=== PATIENT | female | born 1990 | race African-American/Black ===

== ENCOUNTER 2018-08-15 12:32 | Emergency (ER) | payer OTHER ==
[~2018-08-15] VITALS: Ht 160 cm; Wt 79.4 kg
[~2018-08-15 12:32] MED LIST: IBUPROFEN 600600 M1 PO; NOHOMEMEDICATIONS
[2018-08-15] MEDS ORDERED: VENTOLIN HFA 1818 GM INH (14:03)
[2018-08-15] MEDS ORDERED: PREDNISONE 20 M20 MG PO (14:03)
[2018-08-15] MEDS ORDERED: TESSALON PERLE100 MG PO (14:03)
[2018-08-15 14:46] VITALS: BP 162/74
== END 2018-08-15 14:40 | disposition home or self-care (01) ==
LOC: ER 12:32
DX: R05 Cough (principal)

== ENCOUNTER 2018-11-01 13:30 | Emergency (ER) | payer OTHER ==
[~2018-11-01] VITALS: Ht 160 cm; Wt 80.7 kg
[~2018-11-01 13:30] MED LIST changes: +PREDNISONE 20 M20 MG PO; +TESSALON PERLE100 MG PO; +VENTOLIN HFA 1818 GM INH
[2018-11-01 13:57] LABS: URINE BILIRUBIN NEGATIVE (Negative); URINE BLOOD 3+ (Negative); URINE CLARITY CLOUDY; URINE COLOR YELLOW; URINE GLUCOSE-RANDOM* TRACE (Negative); URINE KETONES NEGATIVE (Negative); URINE PROTEIN (DIPSTICK) 2+ (Negative)
[2018-11-01 13:58] LABS: URINE LEUKOCYTES-REFLEX 2+ (Negative); URINE NITRITE-REFLEX POSITIVE (Negative)
[2018-11-01 14:06] LABS: BACTERIA-REFLEX >30 Many /HPF (None Seen); CASTS None Seen /LPF (None Seen); CRYSTALS None Seen /LPF (None Seen); SQUAMOUS 0-3 Few /LPF (0-3); URINE WBC-REFLEX >25 Many /HPF (0-5); WBC CLUMPS Packed (None Seen)
[2018-11-01] MEDS ORDERED: KEFLEX500 M1 PO (14:37)
[2018-11-01] MEDS ORDERED: IBUPROFEN 600600 M1 PO (14:37)
== END 2018-11-01 14:51 | disposition home or self-care (01) ==
LOC: ER 13:30
PROVIDERS: Nurse Practitioner Family
DX: N39.0 Urinary tract infection, site not specified (principal)

== ENCOUNTER 2019-05-29 11:23 | Emergency (ER) | payer OTHER ==
[~2019-05-29] VITALS: Ht 160 cm; Wt 81.7 kg
[~2019-05-29 11:23] MED LIST changes: +KEFLEX500 M1 PO
[2019-05-29 11:26] VITALS: BP 120/66
[2019-05-29 11:48] LABS: URINE BILIRUBIN NEGATIVE (Negative); URINE BLOOD TRACE (Negative); URINE CLARITY CLOUDY; URINE COLOR YELLOW; URINE GLUCOSE-RANDOM* NEGATIVE (Negative); URINE KETONES NEGATIVE (Negative); URINE PROTEIN (DIPSTICK) TRACE (Negative); URINE SPECIFIC GRAVITY >= 1.030 (1.005-1.035)
[2019-05-29 11:50] LABS: URINE LEUKOCYTES-REFLEX 1+ (Negative); URINE NITRITE-REFLEX POSITIVE (Negative)
[2019-05-29 11:58] LABS: SQUAMOUS >10 Many /LPF (0-3)
[2019-05-29 11:59] LABS: BACTERIA-REFLEX 1-9 Few /HPF (None Seen); CASTS None Seen /LPF (None Seen); CRYSTALS None Seen /LPF (None Seen); URINE RBC None Seen /HPF (0-2)
[2019-05-29] MEDS ORDERED: CEFUROXIME500 MG PO (12:30)
[2019-05-29] MEDS ORDERED: PYRIDIUM200 MG PO (12:30)
== END 2019-05-29 12:20 | disposition home or self-care (01) ==
LOC: ER 11:23
PROVIDERS: Physician Assistant
DX: N39.0 Urinary tract infection, site not specified (principal)